=== PATIENT | female | born 1965 | race Caucasian/White ===

== ENCOUNTER 2018-11-02 12:57 | Outpatient (CLI) | END 2018-11-02 12:58 | disposition home or self-care (01) | LOC: RHC-LAB 12:57 | PROVIDERS: ATTEND Nurse Practitioner Family | DX: E78.5 Hyperlipidemia, unspecified (principal); F32.9 Major depressive disorder, single episode, unspecified; M25.50 Pain in unspecified joint; Z72.0 Tobacco use | CPT/HCPCS: 36415; 80053; 80061; 84443; 85025; 86038; 86430 ==